=== PATIENT | female | born 1930 | race Caucasian/White ===

== ENCOUNTER 2018-03-10 12:38 | Inpatient (IN) | payer MEDICARE, OTHER ==
[2018-03-10 13:04] LABS: ADD MAN DIFF? NO
[2018-03-10 13:05] LABS: WHITE BLOOD COUNT 12.8 10^3/ul (4.8-10.8)
[2018-03-10 13:05] LABS: BASOPHILS % 0.2 % (0.0-2.0); EOSINOPHILS # 0.2 10^3/ul (0.0-0.5); EOSINOPHILS % 1.2 % (0.0-7.0); HEMATOCRIT 39.5 % (37.0-47.0); HEMOGLOBIN 12.8 g/dl (12.0-16.0); LYMPHOCYTES # 1.2 10^3/ul (0.8-2.9); LYMPHOCYTES % 9.3 % (15.0-51.0); MEAN CORPUSCULAR HEMOGLOBIN 31.7 pg (29.0-33.0); MEAN CORPUSCULAR HGB CONC 32.4 g/dl (32.0-37.0); MEAN CORPUSCULAR VOLUME 97.8 fl (82.0-101.0); MEAN PLATELET VOLUME 10.9 fl (7.4-10.4); MONOCYTE # 0.9 10^3/ul (0.3-0.9); MONOCYTES % 7.4 % (0.0-11.0); NEUTROPHIL # 10.3 10^3/ul (1.6-7.5); PLATELET COUNT 215 10^3/UL (140-415); RED BLOOD COUNT 4.04 10^6/ul (4.20-5.40)
[2018-03-10] MEDS: SOD CHLORIDE 0.9% 500 ML IV (13:07)
[2018-03-10 13:25] LABS: INR 0.93; PROTIME 12.5 Sec (11.9-14.9)
[2018-03-10 13:26] LABS: PARTIAL THROMBOPLASTIN TIME 26.6 Sec (25.0-35.0)
[2018-03-10 13:29] LABS: ANION GAP 16 (8-16); BLOOD UREA NITROGEN 28 mg/dl (7-20); CALCIUM 9.8 mg/dl (8.4-10.2); CARBON DIOXIDE 25 mmol/L (21-31); CHLORIDE 105 mmol/L (97-110); CREATININE 1.33 mg/dl (0.44-1.00); GLUCOSE 111 mg/dl (70-220); POTASSIUM 4.4 mmol/L (3.5-5.1); SODIUM 142 mmol/L (135-144)
[2018-03-10] MEDS ORDERED: ACETAMINOPHEN 325 MG TAB PO (13:30)
[2018-03-10] MEDS ORDERED: ONDANSETRON 4 MG INJ IV ×2 (13:30→17:00)
[2018-03-10] MEDS: ONDANSETRON 4 MG INJ IV ×2 (13:57→20:11)
[2018-03-10] MEDS: morphine 4 MG/ML VIAL IV (13:58)
[2018-03-10] MEDS ORDERED: HYDROCODONE/APAP (5/325) TAB PO (17:00)
[2018-03-10] MEDS: DEXTROSE 5%-0.45% NACL 1,000 ML IV (18:03)
[2018-03-10] MEDS: DICYCLOMINE 20 MG TAB PO (20:11)
[2018-03-10] MEDS: ATORVASTATIN 20 MG TAB PO (20:11)
[2018-03-10] MEDS: ACETAMINOPHEN 500 MG TAB PO (20:11)
[2018-03-11 05:03] LABS: ADD MAN DIFF? NO
[2018-03-11 05:06] LABS: WHITE BLOOD COUNT 6.4 10^3/ul (4.8-10.8)
[2018-03-11 05:06] LABS: BASOPHILS % 0.2 % (0.0-2.0); EOSINOPHILS % 0.2 % (0.0-7.0); HEMATOCRIT 30.8 % (37.0-47.0); HEMOGLOBIN 10.1 g/dl (12.0-16.0); LYMPHOCYTES # 1.1 10^3/ul (0.8-2.9); LYMPHOCYTES % 17.2 % (15.0-51.0); MEAN CORPUSCULAR HEMOGLOBIN 31.9 pg (29.0-33.0); MEAN CORPUSCULAR HGB CONC 32.8 g/dl (32.0-37.0); MEAN CORPUSCULAR VOLUME 97.2 fl (82.0-101.0); MEAN PLATELET VOLUME 10.7 fl (7.4-10.4); MONOCYTE # 0.8 10^3/ul (0.3-0.9); MONOCYTES % 12.7 % (0.0-11.0); NEUTROPHIL # 4.5 10^3/ul (1.6-7.5); NEUTROPHILS % 69.5 % (39.0-77.0); PLATELET COUNT 187 10^3/UL (140-415); RED BLOOD COUNT 3.17 10^6/ul (4.20-5.40); RED CELL DISTRIBUTION WIDTH 13.1 % (11.5-14.5)
[2018-03-11 05:26] LABS: ANION GAP 18 (8-16); BLOOD UREA NITROGEN 23 mg/dl (7-20); CALCIUM 8.6 mg/dl (8.4-10.2); CARBON DIOXIDE 27 mmol/L (21-31); CHLORIDE 103 mmol/L (97-110); CHOL/HDL RATIO 1.9 RATIO; CREATININE 1.24 mg/dl (0.44-1.00); GLUCOSE 127 mg/dl (70-220); HDL CHOLESTEROL 64 mg/dl (33-92); LDL CHOLESTEROL,CALCULATED 46 mg/dl; SODIUM 144 mmol/L (135-144); TRIGLYCERIDES 74 mg/dl (0-149)
[2018-03-11 05:26] LABS: CHOLESTEROL 125 mg/dl (100-200)
[2018-03-11] MEDS: PANTOPRAZOLE (EC) 40 MG TAB PO (05:43)
[2018-03-11] MEDS: ACETAMINOPHEN 500 MG TAB PO ×2 (05:43→23:50)
[2018-03-11] MEDS ORDERED: DICLOFENAC SODIUM 1% GEL 100 GM TUBE TP (09:00)
[2018-03-11] MEDS: ATENOLOL 50 MG TAB PO (09:00)
[2018-03-11] MEDS: DOCUSATE SODIUM 100 MG CAP PO (09:42)
[2018-03-11] MEDS: MELOXICAM 7.5 MG TAB PO (09:42)
[2018-03-11] MEDS: DONEPEZIL 5 MG TAB PO (09:42)
[2018-03-11] MEDS: DICYCLOMINE 20 MG TAB PO ×2 (09:42→20:18)
[2018-03-11] MEDS: GABAPENTIN 100 MG CAP PO (09:42)
[2018-03-11] MEDS: ENOXAPARIN 30 MG/0.3 ML SYG SC (09:43)
[2018-03-11] MEDS: AMLODIPINE 2.5 MG TAB PO (09:43)
[2018-03-11] MEDS: DEXTROSE 5%-0.45% NACL 1,000 ML IV (09:45)
[2018-03-11 19:11] LABS: CREATINE KINASE 339 IU/L (23-200)
[2018-03-11 19:24] LABS: CK INDEX 0.7; CK-MB 2.38 ng/ml (0.0-2.4)
[2018-03-11 19:26] LABS: TROPONIN-I < 0.012 ng/ml (0.00-0.12)
[2018-03-11] MEDS: ATORVASTATIN 20 MG TAB PO (20:18)
[2018-03-12 01:10] LABS: CREATINE KINASE 353 IU/L (23-200)
[2018-03-12 01:24] LABS: CK INDEX 0.6; CK-MB 2.05 ng/ml (0.0-2.4); TROPONIN-I 0.015 ng/ml (0.00-0.12)
[2018-03-12] MEDS: DEXTROSE 5%-0.45% NACL 1,000 ML IV ×2 (04:43→21:38)
[2018-03-12] MEDS: ACETAMINOPHEN 500 MG TAB PO ×2 (04:43→21:44)
[2018-03-12] MEDS: PANTOPRAZOLE (EC) 40 MG TAB PO (05:30)
[2018-03-12 06:21] LABS: ADD MAN DIFF? NO
[2018-03-12 06:29] LABS: BASOPHILS % 0.2 % (0.0-2.0); EOSINOPHILS # 0.1 10^3/ul (0.0-0.5); EOSINOPHILS % 1.3 % (0.0-7.0); HEMATOCRIT 35.4 % (37.0-47.0); HEMOGLOBIN 11.1 g/dl (12.0-16.0); LYMPHOCYTES # 1.4 10^3/ul (0.8-2.9); LYMPHOCYTES % 21.4 % (15.0-51.0); MEAN CORPUSCULAR HEMOGLOBIN 31.1 pg (29.0-33.0); MEAN CORPUSCULAR HGB CONC 31.4 g/dl (32.0-37.0); MEAN CORPUSCULAR VOLUME 99.2 fl (82.0-101.0); MONOCYTE # 0.8 10^3/ul (0.3-0.9); MONOCYTES % 12.1 % (0.0-11.0); NEUTROPHIL # 4.2 10^3/ul (1.6-7.5); NEUTROPHILS % 64.8 % (39.0-77.0); PLATELET COUNT 210 10^3/UL (140-415); RED BLOOD COUNT 3.57 10^6/ul (4.20-5.40); RED CELL DISTRIBUTION WIDTH 13.1 % (11.5-14.5)
[2018-03-12 06:29] LABS: WHITE BLOOD COUNT 6.4 10^3/ul (4.8-10.8)
[2018-03-12 06:34] LABS: ALANINE AMINOTRANSFERASE 30 IU/L (13-69); ALBUMIN 3.4 g/dl (3.3-4.9); ALBUMIN/GLOBULIN RATIO 1.21; ALKALINE PHOSPHATASE 33 IU/L (42-121); ANION GAP 14 (8-16); ASPARTATE AMINO TRANSFERASE 32 IU/L (15-46); BILIRUBIN,INDIRECT 0.1 mg/dl (0-1.1); BILIRUBIN,TOTAL 0.1 mg/dl (0.2-1.3); BLOOD UREA NITROGEN 17 mg/dl (7-20); CALCIUM 8.9 mg/dl (8.4-10.2); CARBON DIOXIDE 29 mmol/L (21-31); CHLORIDE 106 mmol/L (97-110); CREATININE 1.09 mg/dl (0.44-1.00); GLUCOSE 112 mg/dl (70-220); POTASSIUM 3.9 mmol/L (3.5-5.1); SODIUM 145 mmol/L (135-144); TOTAL PROTEIN 6.2 g/dl (6.1-8.1)
[2018-03-12 06:37] LABS: CHOL/HDL RATIO 2.1 RATIO; HDL CHOLESTEROL 66 mg/dl (33-92); LDL CHOLESTEROL,CALCULATED 57 mg/dl; TRIGLYCERIDES 89 mg/dl (0-149)
[2018-03-12 06:37] LABS: CHOLESTEROL 141 mg/dl (100-200)
[2018-03-12 06:49] LABS: INR 0.93; PROTIME 12.5 Sec (11.9-14.9)
[2018-03-12 07:00] LABS: THYROID STIMULATING HORMONE 0.821 MIU/L (0.465-4.680)
[2018-03-12 07:12] LABS: FREE T4 (FREE THYROXINE) 1.12 ng/dl (0.85-1.93)
[2018-03-12] MEDS: DICYCLOMINE 20 MG TAB PO ×2 (09:07→21:38)
[2018-03-12] MEDS: GABAPENTIN 100 MG CAP PO (09:07)
[2018-03-12] MEDS: DOCUSATE SODIUM 100 MG CAP PO (09:07)
[2018-03-12] MEDS: DONEPEZIL 5 MG TAB PO (09:08)
[2018-03-12] MEDS: MELOXICAM 7.5 MG TAB PO (09:08)
[2018-03-12] MEDS: ATENOLOL 50 MG TAB PO (09:10)
[2018-03-12] MEDS: ENOXAPARIN 30 MG/0.3 ML SYG SC (09:12)
[2018-03-12 18:30] LABS: CREATINE KINASE 271 IU/L (23-200)
[2018-03-12 18:43] LABS: CK INDEX 0.5
[2018-03-12 18:49] LABS: TROPONIN-I < 0.012 ng/ml (0.00-0.12)
[2018-03-12] MEDS: ATORVASTATIN 20 MG TAB PO (21:38)
[2018-03-13 05:14] LABS: ADD MAN DIFF? NO
[2018-03-13 05:23] LABS: WHITE BLOOD COUNT 6.4 10^3/ul (4.8-10.8)
[2018-03-13 05:23] LABS: HEMATOCRIT 32.7 % (37.0-47.0); HEMOGLOBIN 10.5 g/dl (12.0-16.0); MEAN CORPUSCULAR HEMOGLOBIN 31.3 pg (29.0-33.0); MEAN CORPUSCULAR HGB CONC 32.1 g/dl (32.0-37.0); MEAN CORPUSCULAR VOLUME 97.3 fl (82.0-101.0); PLATELET COUNT 190 10^3/UL (140-415); RED BLOOD COUNT 3.36 10^6/ul (4.20-5.40); RED CELL DISTRIBUTION WIDTH 13.1 % (11.5-14.5)
[2018-03-13 05:24] LABS: BASOPHILS % 0.2 % (0.0-2.0); EOSINOPHILS # 0.2 10^3/ul (0.0-0.5); EOSINOPHILS % 3.1 % (0.0-7.0); LYMPHOCYTES # 1.5 10^3/ul (0.8-2.9); LYMPHOCYTES % 23.1 % (15.0-51.0); MEAN PLATELET VOLUME 10.8 fl (7.4-10.4); MONOCYTE # 0.7 10^3/ul (0.3-0.9); MONOCYTES % 10.5 % (0.0-11.0); NEUTROPHILS % 62.8 % (39.0-77.0)
[2018-03-13 05:49] LABS: ANION GAP 15 (8-16); BLOOD UREA NITROGEN 15 mg/dl (7-20); CALCIUM 8.6 mg/dl (8.4-10.2); CARBON DIOXIDE 28 mmol/L (21-31); CHLORIDE 107 mmol/L (97-110); CREATININE 0.99 mg/dl (0.44-1.00); GLUCOSE 109 mg/dl (70-220); POTASSIUM 3.7 mmol/L (3.5-5.1); SODIUM 146 mmol/L (135-144)
[2018-03-13] MEDS: PANTOPRAZOLE (EC) 40 MG TAB PO (06:26)
[2018-03-13] MEDS: ATENOLOL 50 MG TAB PO (07:45)
[2018-03-13] MEDS: DOCUSATE SODIUM 100 MG CAP PO (07:45)
[2018-03-13] MEDS: MELOXICAM 7.5 MG TAB PO (07:45)
[2018-03-13] MEDS: DICYCLOMINE 20 MG TAB PO ×2 (07:45→20:53)
[2018-03-13] MEDS: ENOXAPARIN 30 MG/0.3 ML SYG SC (07:45)
[2018-03-13] MEDS: GABAPENTIN 100 MG CAP PO (07:45)
[2018-03-13] MEDS: DONEPEZIL 5 MG TAB PO (07:46)
[2018-03-13] MEDS: morphine 2 MG INJ IV (13:01)
[2018-03-13] MEDS: DEXTROSE 5%-0.45% NACL 1,000 ML IV ×2 (13:50→16:07)
[2018-03-13] MEDS ORDERED: BUPIVACAINE 0.75%/DEXT (SPINAL) 2 ML INJ (15:08)
[2018-03-13] MEDS ORDERED: FENTAnyl 50 MCG/ML VIAL (15:10)
[2018-03-13] MEDS: ACETAMINOPHEN 500 MG TAB PO ×2 (18:35→20:53)
[2018-03-13] MEDS: ATORVASTATIN 20 MG TAB PO (20:53)
[2018-03-14 05:21] LABS: ADD MAN DIFF? NO
[2018-03-14 05:25] LABS: BASOPHILS % 0.1 % (0.0-2.0); EOSINOPHILS # 0.1 10^3/ul (0.0-0.5); EOSINOPHILS % 1.5 % (0.0-7.0); HEMATOCRIT 34.6 % (37.0-47.0); HEMOGLOBIN 11.1 g/dl (12.0-16.0); LYMPHOCYTES # 1.4 10^3/ul (0.8-2.9); LYMPHOCYTES % 19.5 % (15.0-51.0); MEAN CORPUSCULAR HEMOGLOBIN 30.9 pg (29.0-33.0); MEAN CORPUSCULAR HGB CONC 32.1 g/dl (32.0-37.0); MEAN CORPUSCULAR VOLUME 96.4 fl (82.0-101.0); MEAN PLATELET VOLUME 10.9 fl (7.4-10.4); MONOCYTE # 0.7 10^3/ul (0.3-0.9); MONOCYTES % 10.2 % (0.0-11.0); NEUTROPHIL # 4.9 10^3/ul (1.6-7.5); NEUTROPHILS % 68.4 % (39.0-77.0); PLATELET COUNT 224 10^3/UL (140-415); RED BLOOD COUNT 3.59 10^6/ul (4.20-5.40); RED CELL DISTRIBUTION WIDTH 12.7 % (11.5-14.5)
[2018-03-14 05:25] LABS: WHITE BLOOD COUNT 7.2 10^3/ul (4.8-10.8)
[2018-03-14 05:52] LABS: ANION GAP 11 (8-16); BLOOD UREA NITROGEN 12 mg/dl (7-20); CALCIUM 8.5 mg/dl (8.4-10.2); CARBON DIOXIDE 29 mmol/L (21-31); CHLORIDE 110 mmol/L (97-110); CREATININE 0.96 mg/dl (0.44-1.00); GLUCOSE 125 mg/dl (70-220); POTASSIUM 3.8 mmol/L (3.5-5.1); SODIUM 146 mmol/L (135-144)
[2018-03-14] MEDS: PANTOPRAZOLE (EC) 40 MG TAB PO (06:00)
[2018-03-14] MEDS: POLYMYXIN/BACITRACIN 1L IRRIG IRR (07:34)
[2018-03-14] MEDS ORDERED: FENTAnyl 50 MCG/ML VIAL (07:37)
[2018-03-14] MEDS ORDERED: PROPOFOL 20 ML (07:37)
[2018-03-14] MEDS ORDERED: MIDAZOLAM 1 MG/ML 2 ML INJ (07:37)
[2018-03-14] MEDS ORDERED: METOCLOPRAMIDE 10 MG INJ (07:37)
[2018-03-14] MEDS ORDERED: ONDANSETRON 4 MG INJ (07:37)
[2018-03-14] MEDS ORDERED: morphine SULFATE/PF (10 MG/10 ML) INJ (07:37)
[2018-03-14] MEDS ORDERED: CEFAZOLIN 1 GM INJ (07:39)
[2018-03-14] MEDS ORDERED: PHENYLephrine (100 MCG/ML) 5ML SYG (08:04)
[2018-03-14] MEDS ORDERED: METOPROLOL 5 MG INJ (08:21)
[2018-03-14] MEDS ORDERED: LABETALOL HCL 20MG INJ IV (08:30)
[2018-03-14] MEDS ORDERED: ONDANSETRON 4 MG INJ IV (08:30)
[2018-03-14] MEDS ORDERED: EPHEDrine SULFATE 50 MG/5 ML SYG IV (08:30)
[2018-03-14] MEDS ORDERED: hydrALAzine 20 MG INJ IV (08:30)
[2018-03-14] MEDS ORDERED: HYDROmorphONE (0.2 MG/ML) 10ML SYG IV ×2 (08:30)
[2018-03-14] MEDS: DONEPEZIL 5 MG TAB PO ×2 (09:00→16:04)
[2018-03-14] MEDS: ENOXAPARIN 30 MG/0.3 ML SYG SC (09:00)
[2018-03-14] MEDS: DOCUSATE SODIUM 100 MG CAP PO (09:00)
[2018-03-14] MEDS: ATENOLOL 50 MG TAB PO ×2 (09:00→16:04)
[2018-03-14] MEDS: MELOXICAM 7.5 MG TAB PO (09:00)
[2018-03-14] MEDS: GABAPENTIN 100 MG CAP PO (09:00)
[2018-03-14] MEDS: DICYCLOMINE 20 MG TAB PO ×2 (09:00→20:56)
[2018-03-14] MEDS ORDERED: ROPIVACAINE 0.5 % 30 ML VIAL (09:35)
[2018-03-14] MEDS ORDERED: EPHEDrine SULFATE 50 MG/5 ML SYG (09:59)
[2018-03-14] MEDS ORDERED: NACL 0.9% 3 ML SYG IV (10:00)
[2018-03-14] MEDS ORDERED: HYDROCODONE/APAP (5/325) TAB PO (10:00)
[2018-03-14] MEDS ORDERED: morphine 2 MG INJ IV (10:00)
[2018-03-14] MEDS: HYDROmorphONE (0.2 MG/ML) 10ML SYG IV ×2 (10:15→11:06)
[2018-03-14] MEDS: CEFAZOLIN 1 GM/50 ML (PMX) 50 ML IVPB ×2 (10:50→18:31)
[2018-03-14] MEDS: D5W-0.45 NACL + KCL 20 MEQ 1,000 ML IV ×2 (12:05→21:42)
[2018-03-14] MEDS: ONDANSETRON 4 MG INJ IV (12:05)
[2018-03-14] MEDS ORDERED: POLYMYXIN/BACITRACIN 1L IRRIG (13:03)
[2018-03-14] MEDS: CALCIUM CARBONATE 500 MG CHEW TAB PO (13:55)
[2018-03-14] MEDS: ATORVASTATIN 20 MG TAB PO (20:56)
[2018-03-15] MEDS: CALCIUM CARBONATE 500 MG CHEW TAB PO (00:19)
[2018-03-15] MEDS: DIPHENHYDRAMINE 50 MG INJ IV (00:49)
[2018-03-15] MEDS: CEFAZOLIN 1 GM/50 ML (PMX) 50 ML IVPB (02:23)
[2018-03-15] MEDS: D5W-0.45 NACL + KCL 20 MEQ 1,000 ML IV (05:57)
[2018-03-15] MEDS: LORAZEPAM 2 MG INJ IV (06:24)
[2018-03-15] MEDS: PANTOPRAZOLE (EC) 40 MG TAB PO (06:24)
[2018-03-15 07:33] LABS: ADD UMIC YES; UR ASCORBIC ACID NEGATIVE (NEGATIVE); UR BACTERIA FEW /HPF (NONE SEEN); UR BILIRUBIN (Dip) NEGATIVE (NEGATIVE); UR BLOOD (Dip) 2+ mg/dL (NEGATIVE); UR CLARITY CLEAR (CLEAR); UR COLOR YELLOW (YELLOW); UR GLUCOSE (Dip) 1+ mg/dL (NEGATIVE); UR KETONES (Dip) NEGATIVE (NEGATIVE); UR LEUKOCYTE ESTERASE (Dip) NEGATIVE Leu/ul (NEGATIVE); UR NITRITE (Dip) NEGATIVE (NEGATIVE); UR RBC 0 /HPF (0-5); UR SPECIFIC GRAVITY (Dip) 1.008 (1.003-1.030); UR TOTAL PROTEIN (Dip) NEGATIVE (NEGATIVE); UR UROBILINOGEN (Dip) NEGATIVE (NEGATIVE); UR WBC 3 /HPF (0-5)
[2018-03-15] MEDS: GABAPENTIN 100 MG CAP PO (09:04)
[2018-03-15] MEDS: DOCUSATE SODIUM 100 MG CAP PO (09:04)
[2018-03-15] MEDS: ATENOLOL 50 MG TAB PO (09:08)
[2018-03-15] MEDS: MELOXICAM 7.5 MG TAB PO (09:08)
[2018-03-15] MEDS: DICYCLOMINE 20 MG TAB PO ×2 (09:09→20:59)
[2018-03-15] MEDS: DONEPEZIL 5 MG TAB PO (09:09)
[2018-03-15] MEDS: ENOXAPARIN 40 MG/0.4 ML SYG SC (09:16)
[2018-03-15 09:36] LABS: ADD MAN DIFF? NO
[2018-03-15 09:43] LABS: WHITE BLOOD COUNT 9.3 10^3/ul (4.8-10.8)
[2018-03-15 09:43] LABS: BASOPHILS % 0.1 % (0.0-2.0); EOSINOPHILS % 0.1 % (0.0-7.0); HEMATOCRIT 27.5 % (37.0-47.0); HEMOGLOBIN 9.1 g/dl (12.0-16.0); LYMPHOCYTES # 1.4 10^3/ul (0.8-2.9); MEAN CORPUSCULAR HEMOGLOBIN 31.5 pg (29.0-33.0); MEAN CORPUSCULAR HGB CONC 33.1 g/dl (32.0-37.0); MEAN CORPUSCULAR VOLUME 95.2 fl (82.0-101.0); MEAN PLATELET VOLUME 10.1 fl (7.4-10.4); MONOCYTE # 0.9 10^3/ul (0.3-0.9); NEUTROPHIL # 6.9 10^3/ul (1.6-7.5); NEUTROPHILS % 74.4 % (39.0-77.0); PLATELET COUNT 205 10^3/UL (140-415); RED BLOOD COUNT 2.89 10^6/ul (4.20-5.40); RED CELL DISTRIBUTION WIDTH 12.8 % (11.5-14.5)
[2018-03-15 10:07] LABS: ANION GAP 12 (8-16); BLOOD UREA NITROGEN 16 mg/dl (7-20); CALCIUM 8.1 mg/dl (8.4-10.2); CARBON DIOXIDE 29 mmol/L (21-31); CHLORIDE 105 mmol/L (97-110); CREATININE 1.07 mg/dl (0.44-1.00); GLUCOSE 115 mg/dl (70-220); SODIUM 142 mmol/L (135-144)
[2018-03-15] MEDS: ACETAMINOPHEN 500 MG TAB PO ×2 (12:32→21:01)
[2018-03-15] MEDS: ATORVASTATIN 20 MG TAB PO (20:59)
[2018-03-16] MEDS: ACETAMINOPHEN 500 MG TAB PO ×3 (05:25→20:59)
[2018-03-16] MEDS: PANTOPRAZOLE (EC) 40 MG TAB PO (05:25)
[2018-03-16 05:49] LABS: ADD MAN DIFF? NO
[2018-03-16 06:12] LABS: BASOPHILS % 0.1 % (0.0-2.0); EOSINOPHILS # 0.2 10^3/ul (0.0-0.5); EOSINOPHILS % 2.7 % (0.0-7.0); HEMATOCRIT 24.6 % (37.0-47.0); HEMOGLOBIN 7.9 g/dl (12.0-16.0); LYMPHOCYTES # 1.7 10^3/ul (0.8-2.9); LYMPHOCYTES % 20.4 % (15.0-51.0); MEAN CORPUSCULAR HEMOGLOBIN 31.2 pg (29.0-33.0); MEAN CORPUSCULAR HGB CONC 32.1 g/dl (32.0-37.0); MEAN CORPUSCULAR VOLUME 97.2 fl (82.0-101.0); MEAN PLATELET VOLUME 11.2 fl (7.4-10.4); MONOCYTE # 0.8 10^3/ul (0.3-0.9); MONOCYTES % 9.3 % (0.0-11.0); NEUTROPHIL # 5.5 10^3/ul (1.6-7.5); NEUTROPHILS % 67.3 % (39.0-77.0); PLATELET COUNT 188 10^3/UL (140-415); RED BLOOD COUNT 2.53 10^6/ul (4.20-5.40); RED CELL DISTRIBUTION WIDTH 13.2 % (11.5-14.5)
[2018-03-16 06:12] LABS: WHITE BLOOD COUNT 8.1 10^3/ul (4.8-10.8)
[2018-03-16 06:18] LABS: ANION GAP 8 (8-16); BLOOD UREA NITROGEN 21 mg/dl (7-20); CALCIUM 7.8 mg/dl (8.4-10.2); CARBON DIOXIDE 31 mmol/L (21-31); CHLORIDE 111 mmol/L (97-110); CREATININE 1.13 mg/dl (0.44-1.00); GLUCOSE 88 mg/dl (70-220); POTASSIUM 3.7 mmol/L (3.5-5.1); SODIUM 146 mmol/L (135-144)
[2018-03-16] MEDS: MELOXICAM 7.5 MG TAB PO (08:43)
[2018-03-16] MEDS: GABAPENTIN 100 MG CAP PO (08:43)
[2018-03-16] MEDS: DONEPEZIL 5 MG TAB PO (08:43)
[2018-03-16] MEDS: DICYCLOMINE 20 MG TAB PO ×2 (08:43→20:58)
[2018-03-16] MEDS: DOCUSATE SODIUM 100 MG CAP PO (08:43)
[2018-03-16] MEDS: ATENOLOL 50 MG TAB PO (08:45)
[2018-03-16] MEDS: ENOXAPARIN 40 MG/0.4 ML SYG SC (08:51)
[2018-03-16] MEDS: POTASSIUM CHLORIDE IV (11:05)
[2018-03-16] MEDS: DEXTROSE 5% IV (11:05)
[2018-03-16] MEDS: SOD CHLORIDE 0.9% 250 ML IV* (14:44)
[2018-03-16] MEDS ORDERED: traMADol 50 MG TAB PO (15:00)
[2018-03-16 20:53] LABS: IMMEDIATE SPIN CROSSMATCH 1 1
[2018-03-16] MEDS: ATORVASTATIN 20 MG TAB PO (20:58)
[2018-03-17 05:04] LABS: ADD MAN DIFF? NO
[2018-03-17 05:07] LABS: WHITE BLOOD COUNT 7.4 10^3/ul (4.8-10.8)
[2018-03-17 05:07] LABS: BASOPHILS % 0.1 % (0.0-2.0); EOSINOPHILS # 0.3 10^3/ul (0.0-0.5); EOSINOPHILS % 3.4 % (0.0-7.0); HEMATOCRIT 28.6 % (37.0-47.0); HEMOGLOBIN 9.6 g/dl (12.0-16.0); LYMPHOCYTES # 1.4 10^3/ul (0.8-2.9); MEAN CORPUSCULAR HEMOGLOBIN 31.5 pg (29.0-33.0); MEAN CORPUSCULAR HGB CONC 33.6 g/dl (32.0-37.0); MEAN CORPUSCULAR VOLUME 93.8 fl (82.0-101.0); MEAN PLATELET VOLUME 10.4 fl (7.4-10.4); MONOCYTE # 0.6 10^3/ul (0.3-0.9); MONOCYTES % 8.7 % (0.0-11.0); NEUTROPHILS % 67.8 % (39.0-77.0); PLATELET COUNT 217 10^3/UL (140-415); RED BLOOD COUNT 3.05 10^6/ul (4.20-5.40); RED CELL DISTRIBUTION WIDTH 14.6 % (11.5-14.5)
[2018-03-17 05:40] LABS: ANION GAP 10 (8-16); BLOOD UREA NITROGEN 17 mg/dl (7-20); CALCIUM 7.9 mg/dl (8.4-10.2); CARBON DIOXIDE 30 mmol/L (21-31); CHLORIDE 107 mmol/L (97-110); CREATININE 1.02 mg/dl (0.44-1.00); GLUCOSE 105 mg/dl (70-220); POTASSIUM 3.6 mmol/L (3.5-5.1); SODIUM 143 mmol/L (135-144)
[2018-03-17] MEDS: PANTOPRAZOLE (EC) 40 MG TAB PO (07:10)
[2018-03-17] MEDS: ACETAMINOPHEN 500 MG TAB PO ×3 (07:10→21:31)
[2018-03-17] MEDS: DICYCLOMINE 20 MG TAB PO ×2 (09:01→21:27)
[2018-03-17] MEDS: DOCUSATE SODIUM 100 MG CAP PO (09:01)
[2018-03-17] MEDS: GABAPENTIN 100 MG CAP PO (09:01)
[2018-03-17] MEDS: ATENOLOL 25 MG TAB PO (09:02)
[2018-03-17] MEDS: DONEPEZIL 5 MG TAB PO (09:02)
[2018-03-17] MEDS: MELOXICAM 7.5 MG TAB PO (09:02)
[2018-03-17] MEDS: ENOXAPARIN 40 MG/0.4 ML SYG SC (09:05)
[2018-03-17] MEDS: ATORVASTATIN 20 MG TAB PO (21:27)
[2018-03-18] MEDS: ACETAMINOPHEN 500 MG TAB PO ×3 (06:33→21:29)
[2018-03-18] MEDS: PANTOPRAZOLE (EC) 40 MG TAB PO (06:33)
[2018-03-18] MEDS: GABAPENTIN 100 MG CAP PO (10:22)
[2018-03-18] MEDS: DICYCLOMINE 20 MG TAB PO ×2 (10:22→21:29)
[2018-03-18] MEDS: DOCUSATE SODIUM 100 MG CAP PO (10:23)
[2018-03-18] MEDS: ATENOLOL 25 MG TAB PO (10:23)
[2018-03-18] MEDS: MELOXICAM 7.5 MG TAB PO (10:23)
[2018-03-18] MEDS: DONEPEZIL 5 MG TAB PO (10:23)
[2018-03-18] MEDS: ENOXAPARIN 40 MG/0.4 ML SYG SC (10:25)
[2018-03-18] MEDS: NYSTATIN 30 GM POWDER BTL TOP ×2 (14:30→21:30)
[2018-03-18] MEDS: ATORVASTATIN 20 MG TAB PO (21:29)
[2018-03-19 05:11] LABS: ADD MAN DIFF? NO
[2018-03-19 05:17] LABS: WHITE BLOOD COUNT 6.5 10^3/ul (4.8-10.8)
[2018-03-19 05:17] LABS: BASOPHILS % 0.3 % (0.0-2.0); EOSINOPHILS # 0.3 10^3/ul (0.0-0.5); EOSINOPHILS % 4.8 % (0.0-7.0); HEMATOCRIT 31.4 % (37.0-47.0); HEMOGLOBIN 10.1 g/dl (12.0-16.0); LYMPHOCYTES # 1.5 10^3/ul (0.8-2.9); LYMPHOCYTES % 23.4 % (15.0-51.0); MEAN CORPUSCULAR HEMOGLOBIN 30.6 pg (29.0-33.0); MEAN CORPUSCULAR HGB CONC 32.2 g/dl (32.0-37.0); MEAN CORPUSCULAR VOLUME 95.2 fl (82.0-101.0); MEAN PLATELET VOLUME 9.9 fl (7.4-10.4); MONOCYTE # 0.7 10^3/ul (0.3-0.9); MONOCYTES % 10.9 % (0.0-11.0); NEUTROPHIL # 3.9 10^3/ul (1.6-7.5); NEUTROPHILS % 60.3 % (39.0-77.0); PLATELET COUNT 321 10^3/UL (140-415); RED CELL DISTRIBUTION WIDTH 14.2 % (11.5-14.5)
[2018-03-19] MEDS: PANTOPRAZOLE (EC) 40 MG TAB PO (05:22)
[2018-03-19 05:38] LABS: ANION GAP 12 (8-16); BLOOD UREA NITROGEN 16 mg/dl (7-20); CALCIUM 8.6 mg/dl (8.4-10.2); CARBON DIOXIDE 29 mmol/L (21-31); CHLORIDE 106 mmol/L (97-110); CREATININE 0.96 mg/dl (0.44-1.00); GLUCOSE 124 mg/dl (70-220); POTASSIUM 3.6 mmol/L (3.5-5.1); SODIUM 143 mmol/L (135-144)
[2018-03-19] MEDS: DICYCLOMINE 20 MG TAB PO ×2 (09:00→21:20)
[2018-03-19] MEDS: DONEPEZIL 5 MG TAB PO (09:19)
[2018-03-19] MEDS: ENOXAPARIN 40 MG/0.4 ML SYG SC (09:19)
[2018-03-19] MEDS: MELOXICAM 7.5 MG TAB PO (09:19)
[2018-03-19] MEDS: DOCUSATE SODIUM 100 MG CAP PO (09:19)
[2018-03-19] MEDS: GABAPENTIN 100 MG CAP PO (09:19)
[2018-03-19] MEDS: ATENOLOL 25 MG TAB PO (09:20)
[2018-03-19] MEDS: NYSTATIN 30 GM POWDER BTL TOP ×2 (09:21→21:21)
[2018-03-19] MEDS: ATORVASTATIN 20 MG TAB PO (21:20)
[2018-03-20 05:07] LABS: ADD MAN DIFF? NO
[2018-03-20 05:13] LABS: WHITE BLOOD COUNT 7.1 10^3/ul (4.8-10.8)
[2018-03-20 05:13] LABS: BASOPHILS % 0.1 % (0.0-2.0); EOSINOPHILS # 0.3 10^3/ul (0.0-0.5); EOSINOPHILS % 4.2 % (0.0-7.0); HEMATOCRIT 32.1 % (37.0-47.0); HEMOGLOBIN 10.4 g/dl (12.0-16.0); LYMPHOCYTES # 1.9 10^3/ul (0.8-2.9); LYMPHOCYTES % 26.5 % (15.0-51.0); MEAN CORPUSCULAR HEMOGLOBIN 31.1 pg (29.0-33.0); MEAN CORPUSCULAR HGB CONC 32.4 g/dl (32.0-37.0); MEAN CORPUSCULAR VOLUME 96.1 fl (82.0-101.0); MEAN PLATELET VOLUME 9.8 fl (7.4-10.4); MONOCYTE # 0.7 10^3/ul (0.3-0.9); MONOCYTES % 10.4 % (0.0-11.0); NEUTROPHIL # 4.2 10^3/ul (1.6-7.5); NEUTROPHILS % 58.4 % (39.0-77.0); PLATELET COUNT 342 10^3/UL (140-415); RED BLOOD COUNT 3.34 10^6/ul (4.20-5.40); RED CELL DISTRIBUTION WIDTH 14.5 % (11.5-14.5)
[2018-03-20 05:28] LABS: ANION GAP 10 (8-16); BLOOD UREA NITROGEN 17 mg/dl (7-20); CALCIUM 8.5 mg/dl (8.4-10.2); CARBON DIOXIDE 31 mmol/L (21-31); CHLORIDE 107 mmol/L (97-110); CREATININE 0.99 mg/dl (0.44-1.00); GLUCOSE 103 mg/dl (70-220); POTASSIUM 3.8 mmol/L (3.5-5.1); SODIUM 144 mmol/L (135-144)
[2018-03-20] MEDS: PANTOPRAZOLE (EC) 40 MG TAB PO (06:28)
[2018-03-20] MEDS: GABAPENTIN 100 MG CAP PO (08:43)
[2018-03-20] MEDS: DICYCLOMINE 20 MG TAB PO ×2 (08:43→21:27)
[2018-03-20] MEDS: DONEPEZIL 5 MG TAB PO (08:44)
[2018-03-20] MEDS: ATENOLOL 25 MG TAB PO (08:44)
[2018-03-20] MEDS: DOCUSATE SODIUM 100 MG CAP PO (08:44)
[2018-03-20] MEDS: NYSTATIN 30 GM POWDER BTL TOP ×2 (08:45→21:27)
[2018-03-20] MEDS: ENOXAPARIN 40 MG/0.4 ML SYG SC (08:48)
[2018-03-20] MEDS: MELOXICAM 7.5 MG TAB PO (09:00)
[2018-03-20] MEDS: ACETAMINOPHEN 500 MG TAB PO ×2 (14:56→21:27)
[2018-03-20] MEDS: ATORVASTATIN 20 MG TAB PO (21:27)
[2018-03-20] MEDS: LORAZEPAM 0.5 MG TAB PO (21:35)
[2018-03-21] MEDS: PANTOPRAZOLE (EC) 40 MG TAB PO (05:11)
[2018-03-21] MEDS ORDERED: VITAMIN A & D 5 GM OINT PACKET TOP (05:14)
[2018-03-21] MEDS: DOCUSATE SODIUM 100 MG CAP PO (08:32)
[2018-03-21] MEDS: ATENOLOL 25 MG TAB PO (08:33)
[2018-03-21] MEDS: MELOXICAM 7.5 MG TAB PO (08:33)
[2018-03-21] MEDS: DONEPEZIL 5 MG TAB PO (08:33)
[2018-03-21] MEDS: DICYCLOMINE 20 MG TAB PO ×2 (08:33→20:39)
[2018-03-21] MEDS: GABAPENTIN 100 MG CAP PO (08:33)
[2018-03-21] MEDS: ENOXAPARIN 40 MG/0.4 ML SYG SC (08:37)
[2018-03-21] MEDS: NYSTATIN 30 GM POWDER BTL TOP ×2 (08:37→20:40)
[2018-03-21] MEDS: LORAZEPAM 0.5 MG TAB PO (20:39)
[2018-03-21] MEDS: ATORVASTATIN 20 MG TAB PO (20:39)
[2018-03-21] MEDS: ACETAMINOPHEN 500 MG TAB PO (20:39)
[2018-03-22] MEDS: PANTOPRAZOLE (EC) 40 MG TAB PO (05:37)
[2018-03-22] MEDS: ACETAMINOPHEN 500 MG TAB PO (05:37)
[2018-03-22] MEDS: DOCUSATE SODIUM 100 MG CAP PO (08:57)
[2018-03-22] MEDS: ATENOLOL 25 MG TAB PO (08:57)
[2018-03-22] MEDS: MELOXICAM 7.5 MG TAB PO (08:57)
[2018-03-22] MEDS: NYSTATIN 30 GM POWDER BTL TOP (08:58)
[2018-03-22] MEDS: DICYCLOMINE 20 MG TAB PO (08:58)
[2018-03-22] MEDS: DONEPEZIL 5 MG TAB PO (08:58)
[2018-03-22] MEDS: GABAPENTIN 100 MG CAP PO (08:58)
[2018-03-22] MEDS: ENOXAPARIN 40 MG/0.4 ML SYG SC (09:05)
[2018-03-23] MEDS ORDERED: PANTOPRAZOLE (EC) 40 MG TAB PO (06:00)
== END 2018-03-22 16:00 | DRG 481 ==
LOC: MS1 03-15 05:41 → E/R 12:38 → MS1 13:32
PROVIDERS: Orthopaedic Surgery
PROC: 0QS806Z Reposition Right Femoral Shaft with Intramedullary Internal Fixation Device, Open Approach (ICD-10-PCS; principal; 2018-03-13 15:13)
PROC: 30233N1 Transfusion of Nonautologous Red Blood Cells into Peripheral Vein, Percutaneous Approach (ICD-10-PCS; 2018-03-13 15:13)
DX: S72.331A Displaced oblique fracture of shaft of right femur, initial encounter for closed fracture (principal); N17.9 Acute kidney failure, unspecified; D64.9 Anemia, unspecified; E78.5 Hyperlipidemia, unspecified; F03.90 Unspecified dementia, unspecified severity, without behavioral disturbance, psychotic disturbance, mood disturbance, and anxiety; I95.9 Hypotension, unspecified; I12.9 Hypertensive chronic kidney disease with stage 1 through stage 4 chronic kidney disease, or unspecified chronic kidney disease; M19.90 Unspecified osteoarthritis, unspecified site; N18.2 Chronic kidney disease, stage 2 (mild); R94.31 Abnormal electrocardiogram [ECG] [EKG]; W18.09XA Striking against other object with subsequent fall, initial encounter; Z96.642 Presence of left artificial hip joint
CPT/HCPCS: 36415; 36430; 71045; 72170; 73510; 73550; 80048; 80053; 80061; 81001; 82550; 82553; 84439; 84443; 84484; 85025; 85610; 85730; 86850; 86900; 86901; 86920; 87086; 93005; 93306; 96374; 96375; 97110; 97116; 97162; 97530; 99285-25

== ENCOUNTER 2018-03-22 16:11 | Inpatient (IN) | payer MEDICARE, OTHER ==
[2018-03-22] MEDS ORDERED: MAGNESIUM HYDROXIDE 30ML CUP PO (17:30)
[2018-03-22] MEDS ORDERED: LACTULOSE 30ML CUP PO (17:30)
[2018-03-22] MEDS ORDERED: ACETAMINOPHEN 325 MG TAB PO (17:30)
[2018-03-22] MEDS ORDERED: BISACODYL 10 MG SUPP PR (17:30)
[2018-03-22] MEDS ORDERED: DIPHENHYDRAMINE 50 MG INJ IV (18:00)
[2018-03-22] MEDS ORDERED: LORAZEPAM 2 MG INJ IV (18:00)
[2018-03-22] MEDS ORDERED: ACETAMINOPHEN 500 MG TAB PO (18:00)
[2018-03-22] MEDS ORDERED: HYDROCODONE/APAP (5/325) TAB PO (18:00)
[2018-03-22] MEDS ORDERED: ONDANSETRON 4 MG INJ IV (18:30)
[2018-03-22] MEDS ORDERED: NACL 0.9% 3 ML SYG IV (18:30)
[2018-03-22] MEDS ORDERED: morphine 2 MG INJ IV ×2 (18:30)
[2018-03-22] MEDS ORDERED: traMADol 50 MG TAB PO (18:30)
[2018-03-22] MEDS: DOCUSATE SODIUM 100 MG CAP PO (21:35)
[2018-03-22] MEDS: SENNA TAB PO (21:35)
[2018-03-22] MEDS: ATORVASTATIN 20 MG TAB PO (21:35)
[2018-03-22] MEDS: LORAZEPAM 0.5 MG TAB PO (21:35)
[2018-03-22] MEDS: NYSTATIN 30 GM POWDER BTL TOP (21:37)
[2018-03-22] MEDS: DICYCLOMINE 20 MG TAB PO (21:37)
[2018-03-23 03:46] LABS: ADD UMIC YES; UR AMORPHOUS CRYSTAL FEW /HPF (NONE SEEN); UR ASCORBIC ACID NEGATIVE (NEGATIVE); UR BACTERIA FEW /HPF (NONE SEEN); UR BILIRUBIN (Dip) NEGATIVE (NEGATIVE); UR BLOOD (Dip) NEGATIVE (NEGATIVE); UR CLARITY SLIGHTLY CLOUDY (CLEAR); UR COLOR YELLOW (YELLOW); UR GLUCOSE (Dip) NEGATIVE (NEGATIVE); UR KETONES (Dip) NEGATIVE (NEGATIVE); UR LEUKOCYTE ESTERASE (Dip) 1+ Leu/ul (NEGATIVE); UR MUCUS FEW /HPF (NONE SEEN); UR NITRITE (Dip) POSITIVE (NEGATIVE); UR RBC 2 /HPF (0-5); UR SPECIFIC GRAVITY (Dip) 1.011 (1.003-1.030); UR TOTAL PROTEIN (Dip) NEGATIVE (NEGATIVE); UR UROBILINOGEN (Dip) NEGATIVE (NEGATIVE); UR WBC 16 /HPF (0-5)
[2018-03-23] MEDS: PANTOPRAZOLE (EC) 40 MG TAB PO (06:28)
[2018-03-23 06:34] LABS: ADD MAN DIFF? NO
[2018-03-23 06:43] LABS: BASOPHILS % 0.1 % (0.0-2.0); EOSINOPHILS # 0.3 10^3/ul (0.0-0.5); EOSINOPHILS % 4.4 % (0.0-7.0); HEMATOCRIT 29.9 % (37.0-47.0); HEMOGLOBIN 9.9 g/dl (12.0-16.0); LYMPHOCYTES # 1.7 10^3/ul (0.8-2.9); LYMPHOCYTES % 24.5 % (15.0-51.0); MEAN CORPUSCULAR HEMOGLOBIN 32.5 pg (29.0-33.0); MEAN CORPUSCULAR HGB CONC 33.1 g/dl (32.0-37.0); MEAN PLATELET VOLUME 9.5 fl (7.4-10.4); MONOCYTE # 0.8 10^3/ul (0.3-0.9); NEUTROPHIL # 4.2 10^3/ul (1.6-7.5); NEUTROPHILS % 59.6 % (39.0-77.0); PLATELET COUNT 382 10^3/UL (140-415); RED BLOOD COUNT 3.05 10^6/ul (4.20-5.40); RED CELL DISTRIBUTION WIDTH 15.4 % (11.5-14.5)
[2018-03-23 06:43] LABS: WHITE BLOOD COUNT 7.1 10^3/ul (4.8-10.8)
[2018-03-23] MEDS: HYDROCODONE/APAP (5/325) TAB PO (07:27)
[2018-03-23 07:29] LABS: ALANINE AMINOTRANSFERASE 38 IU/L (13-69); ALBUMIN/GLOBULIN RATIO 1.07; ALKALINE PHOSPHATASE 63 IU/L (42-121); ANION GAP 15 (8-16); ASPARTATE AMINO TRANSFERASE 28 IU/L (15-46); BILIRUBIN,INDIRECT 0.3 mg/dl (0-1.1); BILIRUBIN,TOTAL 0.3 mg/dl (0.2-1.3); BLOOD UREA NITROGEN 25 mg/dl (7-20); CALCIUM 8.3 mg/dl (8.4-10.2); CARBON DIOXIDE 25 mmol/L (21-31); CHLORIDE 107 mmol/L (97-110); CREATININE 1.06 mg/dl (0.44-1.00); GLUCOSE 100 mg/dl (70-220); POTASSIUM 3.8 mmol/L (3.5-5.1); SODIUM 143 mmol/L (135-144); TOTAL PROTEIN 5.8 g/dl (6.1-8.1)
[2018-03-23] MEDS: MELOXICAM 7.5 MG TAB PO (08:24)
[2018-03-23] MEDS: DOCUSATE SODIUM 100 MG CAP PO ×2 (08:24→22:11)
[2018-03-23] MEDS: ATENOLOL 25 MG TAB PO (08:25)
[2018-03-23] MEDS: DONEPEZIL 5 MG TAB PO (08:25)
[2018-03-23] MEDS: GABAPENTIN 100 MG CAP PO (08:25)
[2018-03-23] MEDS: HYDROmorphONE 0.5 MG/0.5 ML SYG IM (08:26)
[2018-03-23] MEDS: DICYCLOMINE 20 MG TAB PO ×2 (08:31→22:11)
[2018-03-23] MEDS: ENOXAPARIN 40 MG/0.4 ML SYG SC (08:53)
[2018-03-23] MEDS: NYSTATIN 30 GM POWDER BTL TOP ×2 (08:53→22:11)
[2018-03-23] MEDS ORDERED: DOCUSATE SODIUM 100 MG CAP PO (09:00)
[2018-03-23] MEDS ORDERED: AMLODIPINE 2.5 MG TAB PO (09:00)
[2018-03-23] MEDS: SENNA TAB PO (22:00)
[2018-03-23] MEDS: ATORVASTATIN 20 MG TAB PO (22:11)
[2018-03-23] MEDS: LORAZEPAM 0.5 MG TAB PO (22:16)
[2018-03-24] MEDS: PANTOPRAZOLE (EC) 40 MG TAB PO (06:35)
[2018-03-24] MEDS: HYDROCODONE/APAP (5/325) TAB PO (06:50)
[2018-03-24] MEDS: DOCUSATE SODIUM 100 MG CAP PO ×2 (08:26→22:06)
[2018-03-24] MEDS: GABAPENTIN 100 MG CAP PO (08:26)
[2018-03-24] MEDS: DICYCLOMINE 20 MG TAB PO ×2 (08:26→22:05)
[2018-03-24] MEDS: NYSTATIN 30 GM POWDER BTL TOP ×2 (08:27→22:06)
[2018-03-24] MEDS: ATENOLOL 25 MG TAB PO (08:27)
[2018-03-24] MEDS: ENOXAPARIN 40 MG/0.4 ML SYG SC (08:31)
[2018-03-24] MEDS: DONEPEZIL 5 MG TAB PO (09:00)
[2018-03-24] MEDS: MELOXICAM 7.5 MG TAB PO (09:00)
[2018-03-24] MEDS: ATORVASTATIN 20 MG TAB PO (22:05)
[2018-03-24] MEDS: SENNA TAB PO (22:06)
[2018-03-25] MEDS: PANTOPRAZOLE (EC) 40 MG TAB PO (06:53)
[2018-03-25] MEDS: ATENOLOL 25 MG TAB PO (08:30)
[2018-03-25] MEDS: GABAPENTIN 100 MG CAP PO (08:30)
[2018-03-25] MEDS: MELOXICAM 7.5 MG TAB PO (08:30)
[2018-03-25] MEDS: DICYCLOMINE 20 MG TAB PO ×2 (08:30→20:17)
[2018-03-25] MEDS: DONEPEZIL 5 MG TAB PO (08:30)
[2018-03-25] MEDS: ENOXAPARIN 40 MG/0.4 ML SYG SC (08:33)
[2018-03-25] MEDS: CALCIUM CARBONATE 500 MG CHEW TAB PO (08:36)
[2018-03-25] MEDS: DOCUSATE SODIUM 100 MG CAP PO (09:00)
[2018-03-25] MEDS: NYSTATIN 30 GM POWDER BTL TOP ×2 (10:17→20:17)
[2018-03-25] MEDS ORDERED: SENNA TAB PO (11:30)
[2018-03-25] MEDS ORDERED: DOCUSATE SODIUM 100 MG CAP PO (11:30)
[2018-03-25] MEDS: ATORVASTATIN 20 MG TAB PO (20:17)
[2018-03-26] MEDS: PANTOPRAZOLE (EC) 40 MG TAB PO (06:16)
[2018-03-26 06:43] LABS: ADD MAN DIFF? NO
[2018-03-26 06:46] LABS: WHITE BLOOD COUNT 9.7 10^3/ul (4.8-10.8)
[2018-03-26 06:46] LABS: BASOPHILS % 0.2 % (0.0-2.0); EOSINOPHILS # 0.2 10^3/ul (0.0-0.5); EOSINOPHILS % 1.8 % (0.0-7.0); HEMOGLOBIN 11.2 g/dl (12.0-16.0); LYMPHOCYTES # 1.2 10^3/ul (0.8-2.9); LYMPHOCYTES % 12.2 % (15.0-51.0); MEAN CORPUSCULAR HEMOGLOBIN 31.7 pg (29.0-33.0); MEAN CORPUSCULAR VOLUME 99.2 fl (82.0-101.0); MEAN PLATELET VOLUME 9.4 fl (7.4-10.4); MONOCYTE # 0.8 10^3/ul (0.3-0.9); MONOCYTES % 7.8 % (0.0-11.0); NEUTROPHIL # 7.5 10^3/ul (1.6-7.5); NEUTROPHILS % 77.6 % (39.0-77.0); PLATELET COUNT 439 10^3/UL (140-415); RED BLOOD COUNT 3.53 10^6/ul (4.20-5.40); RED CELL DISTRIBUTION WIDTH 15.7 % (11.5-14.5)
[2018-03-26 07:26] LABS: ALANINE AMINOTRANSFERASE 38 IU/L (13-69); ALBUMIN 3.5 g/dl (3.3-4.9); ALBUMIN/GLOBULIN RATIO 1.06; ALKALINE PHOSPHATASE 87 IU/L (42-121); ANION GAP 13 (8-16); ASPARTATE AMINO TRANSFERASE 27 IU/L (15-46); BILIRUBIN,INDIRECT 0.5 mg/dl (0-1.1); BILIRUBIN,TOTAL 0.5 mg/dl (0.2-1.3); BLOOD UREA NITROGEN 22 mg/dl (7-20); CALCIUM 9.1 mg/dl (8.4-10.2); CARBON DIOXIDE 28 mmol/L (21-31); CHLORIDE 104 mmol/L (97-110); CREATININE 1.05 mg/dl (0.44-1.00); GLUCOSE 112 mg/dl (70-220); POTASSIUM 4.3 mmol/L (3.5-5.1); SODIUM 141 mmol/L (135-144); TOTAL PROTEIN 6.8 g/dl (6.1-8.1)
[2018-03-26 07:30] LABS: INR 1.01; PROTIME 13.4 Sec (11.9-14.9)
[2018-03-26 07:31] LABS: PARTIAL THROMBOPLASTIN TIME 29.7 Sec (25.0-35.0)
[2018-03-26] MEDS: HYDROCODONE/APAP (5/325) TAB PO (08:38)
[2018-03-26] MEDS: HYDROmorphONE 2 MG/ML SYG IM (08:40)
[2018-03-26] MEDS: MELOXICAM 7.5 MG TAB PO (08:58)
[2018-03-26] MEDS: DONEPEZIL 5 MG TAB PO (08:59)
[2018-03-26] MEDS: GABAPENTIN 100 MG CAP PO (08:59)
[2018-03-26] MEDS: NYSTATIN 30 GM POWDER BTL TOP ×2 (09:00→21:00)
[2018-03-26] MEDS: ONDANSETRON (ODT) 4 MG TAB ODT ×2 (09:00→11:00)
[2018-03-26] MEDS: ENOXAPARIN 40 MG/0.4 ML SYG SC (09:03)
[2018-03-26] MEDS: ATENOLOL 25 MG TAB PO (09:10)
[2018-03-26] MEDS: DICYCLOMINE 20 MG TAB PO (09:14)
[2018-03-26] MEDS ORDERED: HYDROCODONE/APAP (5/325) TAB PO (13:50)
[2018-03-26] MEDS ORDERED: DEXTROSE 5%-0.45% NACL 1,000 ML IV (14:00)
[2018-03-26] MEDS: SOD CHLORIDE 0.9% 1,000 ML IV (15:52)
[2018-03-26] MEDS: ATORVASTATIN 20 MG TAB PO (21:00)
[2018-03-27] MEDS: SOD CHLORIDE 0.9% 1,000 ML IV ×2 (01:25→11:21)
[2018-03-27] MEDS: PANTOPRAZOLE (EC) 40 MG TAB PO (06:11)
[2018-03-27 08:43] LABS: ANION GAP 15 (8-16); BLOOD UREA NITROGEN 28 mg/dl (7-20); CALCIUM 8.1 mg/dl (8.4-10.2); CARBON DIOXIDE 23 mmol/L (21-31); CHLORIDE 106 mmol/L (97-110); CREATININE 1.31 mg/dl (0.44-1.00); GLUCOSE 94 mg/dl (70-220); POTASSIUM 4.4 mmol/L (3.5-5.1); SODIUM 140 mmol/L (135-144)
[2018-03-27] MEDS: ATENOLOL 25 MG TAB PO (09:03)
[2018-03-27] MEDS: MELOXICAM 7.5 MG TAB PO (09:03)
[2018-03-27] MEDS: NYSTATIN 30 GM POWDER BTL TOP (09:04)
[2018-03-27] MEDS: GABAPENTIN 100 MG CAP PO (11:59)
[2018-03-27] MEDS: ENOXAPARIN 40 MG/0.4 ML SYG SC (11:59)
[2018-03-27] MEDS: DONEPEZIL 5 MG TAB PO (11:59)
[2018-03-27] MEDS: LEVOFLOXACIN 500 MG TAB PO (15:56)
[2018-03-28] MEDS ORDERED: LEVOFLOXACIN 250 MG TAB PO (06:00)
== END 2018-03-27 16:30 | DRG 560 ==
LOC: VRC 16:11
PROC: F07Z5ZZ Bed Mobility Treatment (ICD-10-PCS; principal; 2018-03-22)
PROC: F08Z2ZZ Grooming/Personal Hygiene Treatment (ICD-10-PCS; 2018-03-22)
DX: S72.401D Unspecified fracture of lower end of right femur, subsequent encounter for closed fracture with routine healing (principal); N17.9 Acute kidney failure, unspecified; X58.XXXD Exposure to other specified factors, subsequent encounter; R52 Pain, unspecified; E78.5 Hyperlipidemia, unspecified; I12.9 Hypertensive chronic kidney disease with stage 1 through stage 4 chronic kidney disease, or unspecified chronic kidney disease; M19.90 Unspecified osteoarthritis, unspecified site; Z96.653 Presence of artificial knee joint, bilateral; D64.9 Anemia, unspecified; F03.90 Unspecified dementia, unspecified severity, without behavioral disturbance, psychotic disturbance, mood disturbance, and anxiety; N28.9 Disorder of kidney and ureter, unspecified; R79.89 Other specified abnormal findings of blood chemistry; N18.2 Chronic kidney disease, stage 2 (mild)
CPT/HCPCS: 80048; 80053; 81001; 85025; 85610; 85730; 87086; 97110; 97116; 97163; 97166; 97530; 97535

== ENCOUNTER 2018-03-28 18:58 | Inpatient (IN) | payer MEDICARE, OTHER ==
[2018-03-28] MEDS: SODIUM CHLORIDE 0.9% 1L BAG IV* (19:45)
[2018-03-28] MEDS: CEFEPIME 2GM/50 ML (PMX) 50 ML IVPB (19:45)
[2018-03-28 20:56] LABS: WHITE BLOOD COUNT 11.6 10^3/ul (4.8-10.8)
[2018-03-28 20:56] LABS: ABNORMAL IP MESSAGE 1; HEMOGLOBIN 9.1 g/dl (12.0-16.0); MEAN CORPUSCULAR HEMOGLOBIN 31.5 pg (29.0-33.0); MEAN CORPUSCULAR HGB CONC 31.4 g/dl (32.0-37.0); MEAN CORPUSCULAR VOLUME 100.3 fl (82.0-101.0); MEAN PLATELET VOLUME 9.8 fl (7.4-10.4); PLATELET COUNT 225 10^3/UL (140-415); RED BLOOD COUNT 2.89 10^6/ul (4.20-5.40); RED CELL DISTRIBUTION WIDTH 15.9 % (11.5-14.5)
[2018-03-28 20:59] LABS: ADD MAN DIFF? YES; POSITIVE DIFF @See below
[2018-03-28 21:12] LABS: INR 1.05; PROTIME 13.8 Sec (11.9-14.9); PT RATIO 1.1
[2018-03-28 21:12] LABS: LACTIC ACID 0.8 mmol/L (0.5-2.0)
[2018-03-28 21:13] LABS: PARTIAL THROMBOPLASTIN TIME 36.6 Sec (25.0-35.0)
[2018-03-28 21:14] LABS: ALANINE AMINOTRANSFERASE 36 IU/L (13-69); ALBUMIN 2.7 g/dl (3.3-4.9); ALBUMIN/GLOBULIN RATIO 0.96; ALKALINE PHOSPHATASE 117 IU/L (42-121); ANION GAP 11 (8-16); ASPARTATE AMINO TRANSFERASE 29 IU/L (15-46); BILIRUBIN,INDIRECT 0.2 mg/dl (0-1.1); BILIRUBIN,TOTAL 0.2 mg/dl (0.2-1.3); BLOOD UREA NITROGEN 26 mg/dl (7-20); CALCIUM 7.1 mg/dl (8.4-10.2); CARBON DIOXIDE 20 mmol/L (21-31); CHLORIDE 113 mmol/L (97-110); CREATININE 1.26 mg/dl (0.44-1.00); GLUCOSE 108 mg/dl (70-220); POTASSIUM 4.1 mmol/L (3.5-5.1); SODIUM 140 mmol/L (135-144); TOTAL PROTEIN 5.5 g/dl (6.1-8.1)
[2018-03-28 21:50] LABS: ADD UMIC YES; UR ASCORBIC ACID NEGATIVE (NEGATIVE); UR BACTERIA MODERATE /HPF (NONE SEEN); UR BILIRUBIN (Dip) NEGATIVE (NEGATIVE); UR BLOOD (Dip) 2+ mg/dL (NEGATIVE); UR CLARITY SLIGHTLY CLOUDY (CLEAR); UR COLOR YELLOW (YELLOW); UR GLUCOSE (Dip) NEGATIVE (NEGATIVE); UR KETONES (Dip) NEGATIVE (NEGATIVE); UR LEUKOCYTE ESTERASE (Dip) 2+ Leu/ul (NEGATIVE); UR NITRITE (Dip) POSITIVE (NEGATIVE); UR RBC 3 /HPF (0-5); UR SPECIFIC GRAVITY (Dip) 1.009 (1.003-1.030); UR TOTAL PROTEIN (Dip) 1+ mg/dl (NEGATIVE); UR UROBILINOGEN (Dip) NEGATIVE (NEGATIVE); UR WBC 58 /HPF (0-5)
[2018-03-28 22:32] LABS: ANISOCYTOSIS 1+ (0-0); BAND NEUTROPHILS #M 0.1 10^3/ul (0.0-0.6); BAND NEUTROPHILS % (M) 1 % (0-4); LYMPHOCYTES #M 0.8 10^3/ul (0.8-2.9); LYMPHOCYTES % (M) 7 % (15-51); MONOCYTE #M 0.1 10^3/ul (0.3-0.9); MONOCYTES % (M) 1 % (0-11); PLATELET MORPHOLOGY COMMENT @See below; POIKILOCYTOSIS 1+ (0-0); SEG NEUT #M 10.6 10^3/ul (1.6-7.5); SEGMENTED NEUTROPHILS (M) % 91 % (39-77); SMUDGE%M 7 % (0-0)
[2018-03-28 23:29] LABS: LACTIC ACID 0.9 mmol/L (0.5-2.0)
[2018-03-28] MEDS: ONDANSETRON 4 MG INJ IV (23:56)
[2018-03-28] MEDS: SOD CHLORIDE 0.45% 1,000 ML IV (23:57)
[2018-03-29] MEDS: SOD CHLORIDE 0.45% 1,000 ML IV ×2 (01:12→14:47)
[2018-03-29] MEDS: LORAZEPAM 0.5 MG TAB PO ×2 (01:31→21:26)
[2018-03-29 01:54] LABS: LACTIC ACID 1.2 mmol/L (0.5-2.0)
[2018-03-29 05:41] LABS: WHITE BLOOD COUNT 9.5 10^3/ul (4.8-10.8)
[2018-03-29 05:41] LABS: HEMATOCRIT 26.8 % (37.0-47.0); HEMOGLOBIN 8.5 g/dl (12.0-16.0); MEAN CORPUSCULAR HEMOGLOBIN 31.8 pg (29.0-33.0); MEAN CORPUSCULAR HGB CONC 31.7 g/dl (32.0-37.0); MEAN CORPUSCULAR VOLUME 100.4 fl (82.0-101.0); MEAN PLATELET VOLUME 10.2 fl (7.4-10.4); PLATELET COUNT 199 10^3/UL (140-415); RED BLOOD COUNT 2.67 10^6/ul (4.20-5.40)
[2018-03-29 05:55] LABS: ADD MAN DIFF? YES; POSITIVE DIFF @See below
[2018-03-29 06:08] LABS: ALANINE AMINOTRANSFERASE 33 IU/L (13-69); ALBUMIN 2.5 g/dl (3.3-4.9); ALBUMIN/GLOBULIN RATIO 0.89; ALKALINE PHOSPHATASE 104 IU/L (42-121); ANION GAP 12 (8-16); ASPARTATE AMINO TRANSFERASE 24 IU/L (15-46); BILIRUBIN,INDIRECT 0.7 mg/dl (0-1.1); BILIRUBIN,TOTAL 0.7 mg/dl (0.2-1.3); BLOOD UREA NITROGEN 23 mg/dl (7-20); CALCIUM 6.7 mg/dl (8.4-10.2); CARBON DIOXIDE 18 mmol/L (21-31); CHLORIDE 115 mmol/L (97-110); CREATININE 1.26 mg/dl (0.44-1.00); GLUCOSE 88 mg/dl (70-220); POTASSIUM 3.9 mmol/L (3.5-5.1); SODIUM 141 mmol/L (135-144); TOTAL PROTEIN 5.3 g/dl (6.1-8.1)
[2018-03-29 09:07] LABS: ANISOCYTOSIS 1+ (0-0); BAND NEUTROPHILS #M 0.7 10^3/ul (0.0-0.6); BAND NEUTROPHILS % (M) 8 % (0-4); BASOPHILS % (M) 1 % (0-2); BURR CELLS 2+ (0-0); LYMPHOCYTES #M 0.8 10^3/ul (0.8-2.9); LYMPHOCYTES % (M) 9 % (15-51); MONOCYTES % (M) 1 % (0-11); PLATELET ESTIMATE NORMAL; POIKILOCYTOSIS 2+ (0-0); SEG NEUT #M 7.8 10^3/ul (1.6-7.5); SEGMENTED NEUTROPHILS (M) % 81 % (39-77); SMUDGE%M 5 % (0-0)
[2018-03-29] MEDS: CEFEPIME 1GM/50 ML (PMX) 50 ML IVPB ×2 (09:34→20:47)
[2018-03-29] MEDS: ATENOLOL 50 MG TAB PO (09:41)
[2018-03-29] MEDS: MELOXICAM 7.5 MG TAB PO (09:42)
[2018-03-29] MEDS: DONEPEZIL 5 MG TAB PO (09:42)
[2018-03-29] MEDS: AMLODIPINE 2.5 MG TAB PO (09:42)
[2018-03-29] MEDS: ENOXAPARIN 30 MG/0.3 ML SYG SC (09:45)
[2018-03-29] MEDS: ALBUTEROL 0.083% (NEB) 2.5 MG/3 ML AMP HHN (16:01)
[2018-03-29] MEDS: ATORVASTATIN 20 MG TAB PO (20:47)
[2018-03-30] MEDS: SOD CHLORIDE 0.45% 1,000 ML IV ×2 (03:13→17:45)
[2018-03-30] MEDS: ATENOLOL 50 MG TAB PO (08:30)
[2018-03-30] MEDS: CEFEPIME 1GM/50 ML (PMX) 50 ML IVPB ×2 (08:31→20:14)
[2018-03-30] MEDS: DONEPEZIL 5 MG TAB PO (08:31)
[2018-03-30] MEDS: MELOXICAM 7.5 MG TAB PO (08:31)
[2018-03-30] MEDS: AMLODIPINE 2.5 MG TAB PO (08:31)
[2018-03-30] MEDS: ENOXAPARIN 30 MG/0.3 ML SYG SC (08:36)
[2018-03-30] MEDS: MECLIZINE 12.5 MG TAB PO ×2 (17:45→21:43)
[2018-03-30 19:11] LABS: ADD MAN DIFF? NO
[2018-03-30 19:12] LABS: BASOPHILS % 0.3 % (0.0-2.0); EOSINOPHILS # 0.1 10^3/ul (0.0-0.5); EOSINOPHILS % 2.1 % (0.0-7.0); HEMATOCRIT 30.4 % (37.0-47.0); HEMOGLOBIN 9.8 g/dl (12.0-16.0); LYMPHOCYTES # 0.9 10^3/ul (0.8-2.9); LYMPHOCYTES % 12.8 % (15.0-51.0); MEAN CORPUSCULAR HEMOGLOBIN 31.5 pg (29.0-33.0); MEAN CORPUSCULAR HGB CONC 32.2 g/dl (32.0-37.0); MEAN CORPUSCULAR VOLUME 97.7 fl (82.0-101.0); MEAN PLATELET VOLUME 10.7 fl (7.4-10.4); MONOCYTE # 0.9 10^3/ul (0.3-0.9); MONOCYTES % 12.6 % (0.0-11.0); NEUTROPHIL # 4.9 10^3/ul (1.6-7.5); NEUTROPHILS % 71.8 % (39.0-77.0); PLATELET COUNT 249 10^3/UL (140-415); RED BLOOD COUNT 3.11 10^6/ul (4.20-5.40); RED CELL DISTRIBUTION WIDTH 16.5 % (11.5-14.5)
[2018-03-30 19:12] LABS: WHITE BLOOD COUNT 6.8 10^3/ul (4.8-10.8)
[2018-03-30 19:33] LABS: ANION GAP 14 (8-16); BLOOD UREA NITROGEN 17 mg/dl (7-20); CALCIUM 6.9 mg/dl (8.4-10.2); CARBON DIOXIDE 19 mmol/L (21-31); CHLORIDE 110 mmol/L (97-110); CREATININE 1.17 mg/dl (0.44-1.00); GLUCOSE 112 mg/dl (70-220); POTASSIUM 3.7 mmol/L (3.5-5.1); SODIUM 139 mmol/L (135-144)
[2018-03-30] MEDS: NYSTATIN 15 GM OINT TOP (20:14)
[2018-03-30] MEDS: ATORVASTATIN 20 MG TAB PO (20:14)
[2018-03-30] MEDS ORDERED: NYSTATIN 30 GM POWDER BTL TOP (21:00)
[2018-03-30] MEDS: LORAZEPAM 0.5 MG TAB PO (21:43)
[2018-03-30] MEDS: ALBUTEROL 0.083% (NEB) 2.5 MG/3 ML AMP HHN (21:49)
[2018-03-31 06:05] LABS: WHITE BLOOD COUNT 5.6 10^3/ul (4.8-10.8)
[2018-03-31 06:05] LABS: ADD MAN DIFF? NO; BASOPHILS % 0.4 % (0.0-2.0); EOSINOPHILS # 0.2 10^3/ul (0.0-0.5); EOSINOPHILS % 2.8 % (0.0-7.0); HEMATOCRIT 27.1 % (37.0-47.0); HEMOGLOBIN 8.7 g/dl (12.0-16.0); LYMPHOCYTES # 0.9 10^3/ul (0.8-2.9); LYMPHOCYTES % 16.3 % (15.0-51.0); MEAN CORPUSCULAR HGB CONC 32.1 g/dl (32.0-37.0); MEAN CORPUSCULAR VOLUME 96.4 fl (82.0-101.0); MEAN PLATELET VOLUME 10.6 fl (7.4-10.4); MONOCYTE # 0.9 10^3/ul (0.3-0.9); MONOCYTES % 15.6 % (0.0-11.0); NEUTROPHIL # 3.7 10^3/ul (1.6-7.5); NEUTROPHILS % 64.7 % (39.0-77.0); PLATELET COUNT 237 10^3/UL (140-415); RED BLOOD COUNT 2.81 10^6/ul (4.20-5.40); RED CELL DISTRIBUTION WIDTH 16.3 % (11.5-14.5)
[2018-03-31] MEDS: SOD CHLORIDE 0.45% 1,000 ML IV ×3 (06:45→20:40)
[2018-03-31 06:53] LABS: ANION GAP 10 (8-16); BLOOD UREA NITROGEN 14 mg/dl (7-20); CALCIUM 6.8 mg/dl (8.4-10.2); CARBON DIOXIDE 22 mmol/L (21-31); CHLORIDE 113 mmol/L (97-110); CREATININE 1.13 mg/dl (0.44-1.00); GLUCOSE 93 mg/dl (70-220); POTASSIUM 3.4 mmol/L (3.5-5.1); SODIUM 142 mmol/L (135-144)
[2018-03-31] MEDS: MELOXICAM 7.5 MG TAB PO (08:34)
[2018-03-31] MEDS: AMLODIPINE 2.5 MG TAB PO (08:34)
[2018-03-31] MEDS: POTASSIUM CHLORIDE (SR) 20 MEQ TAB PO (08:34)
[2018-03-31] MEDS: ATENOLOL 50 MG TAB PO (08:35)
[2018-03-31] MEDS: MECLIZINE 12.5 MG TAB PO ×3 (08:35→20:37)
[2018-03-31] MEDS: CEFEPIME 1GM/50 ML (PMX) 50 ML IVPB ×2 (08:35→20:37)
[2018-03-31] MEDS: DONEPEZIL 5 MG TAB PO (08:35)
[2018-03-31] MEDS: ENOXAPARIN 30 MG/0.3 ML SYG SC (08:37)
[2018-03-31] MEDS: NYSTATIN 15 GM OINT TOP ×2 (08:37→20:38)
[2018-03-31] MEDS: ACETAMINOPHEN 500 MG TAB PO (17:12)
[2018-03-31 17:46] LABS: PROLACTIN 28.7 ng/mL
[2018-03-31] MEDS: ATORVASTATIN 20 MG TAB PO (20:37)
[2018-03-31] MEDS: CEFTRIAXONE 2 GM/50 ML (PMX) 50 ML IVPB (22:45)
[2018-03-31] MEDS: LORAZEPAM 0.5 MG TAB PO (22:48)
[2018-04-01 05:49] LABS: ADD MAN DIFF? NO
[2018-04-01 05:53] LABS: BASOPHILS % 0.2 % (0.0-2.0); EOSINOPHILS # 0.2 10^3/ul (0.0-0.5); EOSINOPHILS % 3.8 % (0.0-7.0); HEMATOCRIT 30.3 % (37.0-47.0); HEMOGLOBIN 9.8 g/dl (12.0-16.0); LYMPHOCYTES # 1.1 10^3/ul (0.8-2.9); LYMPHOCYTES % 17.9 % (15.0-51.0); MEAN CORPUSCULAR HEMOGLOBIN 30.7 pg (29.0-33.0); MEAN CORPUSCULAR HGB CONC 32.3 g/dl (32.0-37.0); NEUTROPHIL # 3.9 10^3/ul (1.6-7.5); PLATELET COUNT 296 10^3/UL (140-415); RED BLOOD COUNT 3.19 10^6/ul (4.20-5.40); RED CELL DISTRIBUTION WIDTH 16.3 % (11.5-14.5)
[2018-04-01 05:53] LABS: WHITE BLOOD COUNT 6.3 10^3/ul (4.8-10.8)
[2018-04-01 06:25] LABS: ANION GAP 13 (8-16); BLOOD UREA NITROGEN 12 mg/dl (7-20); CALCIUM 7.2 mg/dl (8.4-10.2); CARBON DIOXIDE 22 mmol/L (21-31); CHLORIDE 111 mmol/L (97-110); CREATININE 1.03 mg/dl (0.44-1.00); GLUCOSE 88 mg/dl (70-220); POTASSIUM 3.4 mmol/L (3.5-5.1); SODIUM 143 mmol/L (135-144)
[2018-04-01 06:26] LABS: MONOCYTES % 15.5 % (0.0-11.0)
[2018-04-01] MEDS: MELOXICAM 7.5 MG TAB PO (08:54)
[2018-04-01] MEDS: DONEPEZIL 5 MG TAB PO (08:55)
[2018-04-01] MEDS: AMLODIPINE 2.5 MG TAB PO (08:58)
[2018-04-01] MEDS: ATENOLOL 50 MG TAB PO (08:58)
[2018-04-01] MEDS: MECLIZINE 12.5 MG TAB PO ×3 (09:00→20:48)
[2018-04-01] MEDS: ENOXAPARIN 30 MG/0.3 ML SYG SC (09:02)
[2018-04-01] MEDS: NYSTATIN 15 GM OINT TOP ×2 (09:04→20:48)
[2018-04-01] MEDS: SOD CHLORIDE 0.45% 1,000 ML IV ×2 (11:15→19:57)
[2018-04-01] MEDS: POTASSIUM CHLORIDE 100 ML IVPB (13:38)
[2018-04-01] MEDS: POTASSIUM CHLORIDE (SR) 20 MEQ TAB PO (16:42)
[2018-04-01] MEDS: ATORVASTATIN 20 MG TAB PO (20:47)
[2018-04-01] MEDS: CEFTRIAXONE 2 GM/50 ML (PMX) 50 ML IVPB (22:13)
[2018-04-01] MEDS: LORAZEPAM 0.5 MG TAB PO (22:18)
[2018-04-02] MEDS: SOD CHLORIDE 0.45% 1,000 ML IV ×2 (00:59→15:05)
[2018-04-02 06:38] LABS: HEMATOCRIT 33.2 % (37.0-47.0); HEMOGLOBIN 10.7 g/dl (12.0-16.0); MEAN CORPUSCULAR HEMOGLOBIN 31.2 pg (29.0-33.0); MEAN CORPUSCULAR HGB CONC 32.2 g/dl (32.0-37.0); MEAN CORPUSCULAR VOLUME 96.8 fl (82.0-101.0); PLATELET COUNT 352 10^3/UL (140-415); RED BLOOD COUNT 3.43 10^6/ul (4.20-5.40); RED CELL DISTRIBUTION WIDTH 16.2 % (11.5-14.5)
[2018-04-02 06:38] LABS: WHITE BLOOD COUNT 5.7 10^3/ul (4.8-10.8)
[2018-04-02 07:02] LABS: ANION GAP 12 (8-16); BLOOD UREA NITROGEN 11 mg/dl (7-20); CALCIUM 7.3 mg/dl (8.4-10.2); CARBON DIOXIDE 27 mmol/L (21-31); CHLORIDE 108 mmol/L (97-110); CREATININE 0.98 mg/dl (0.44-1.00); GLUCOSE 89 mg/dl (70-220); POTASSIUM 3.9 mmol/L (3.5-5.1); SODIUM 143 mmol/L (135-144)
[2018-04-02 07:08] LABS: ADD MAN DIFF? YES; POSITIVE DIFF @See below
[2018-04-02 08:27] LABS: BAND NEUTROPHILS % (M) 1 % (0-4); BASOPHILS % (M) 1 % (0-2); EOSINOPHILS % (M) 4 % (0-7); LYMPHOCYTES #M 1.6 10^3/ul (0.8-2.9); LYMPHOCYTES % (M) 29 % (15-51); MONOCYTE #M 0.6 10^3/ul (0.3-0.9); MONOCYTES % (M) 12 % (0-11); PLATELET ESTIMATE NORMAL; POLYCHROMASIA 3+ (0-0); REACTIVE LYMPHOCYTES #M 0.2 10^3/ul (0.0-0.0); REACTIVE LYMPHOCYTES% (M) 4 % (0-0); SEG NEUT #M 2.9 10^3/ul (1.6-7.5); SEGMENTED NEUTROPHILS (M) % 50 % (39-77); SMUDGE%M 18 % (0-0)
[2018-04-02] MEDS: MELOXICAM 7.5 MG TAB PO (09:16)
[2018-04-02] MEDS: DONEPEZIL 5 MG TAB PO (09:16)
[2018-04-02] MEDS: AMLODIPINE 2.5 MG TAB PO (09:17)
[2018-04-02] MEDS: ATENOLOL 50 MG TAB PO (09:17)
[2018-04-02] MEDS: NYSTATIN 15 GM OINT TOP ×2 (09:20→20:45)
[2018-04-02] MEDS: ENOXAPARIN 30 MG/0.3 ML SYG SC (09:22)
[2018-04-02] MEDS: MECLIZINE 12.5 MG TAB PO ×3 (09:22→20:42)
[2018-04-02] MEDS: LORAZEPAM 0.5 MG TAB PO (20:42)
[2018-04-02] MEDS: ATORVASTATIN 20 MG TAB PO (20:42)
[2018-04-02] MEDS: CEFTRIAXONE 2 GM/50 ML (PMX) 50 ML IVPB (22:08)
[2018-04-02] MEDS: ACETAMINOPHEN 500 MG TAB PO (22:20)
[2018-04-03] MEDS ORDERED: PANTOPRAZOLE 40 MG INJ IV ×3 (00:10→06:00)
[2018-04-03] MEDS: ONDANSETRON 4 MG INJ IV (00:40)
[2018-04-03] MEDS: morphine 2 MG INJ IV (00:41)
[2018-04-03] MEDS: PANTOPRAZOLE 40 MG INJ IV (00:41)
[2018-04-03] MEDS: SOD CHLORIDE 0.45% 1,000 ML IV ×3 (05:05→18:28)
[2018-04-03 08:34] LABS: WHITE BLOOD COUNT 6.6 10^3/ul (4.8-10.8)
[2018-04-03 08:34] LABS: HEMATOCRIT 31.3 % (37.0-47.0); HEMOGLOBIN 9.9 g/dl (12.0-16.0); MEAN CORPUSCULAR HEMOGLOBIN 30.5 pg (29.0-33.0); MEAN CORPUSCULAR HGB CONC 31.6 g/dl (32.0-37.0); MEAN CORPUSCULAR VOLUME 96.3 fl (82.0-101.0); PLATELET COUNT 370 10^3/UL (140-415); RED BLOOD COUNT 3.25 10^6/ul (4.20-5.40); RED CELL DISTRIBUTION WIDTH 16.2 % (11.5-14.5)
[2018-04-03 08:43] LABS: ADD MAN DIFF? YES; POSITIVE DIFF @See below
[2018-04-03 08:47] LABS: ALANINE AMINOTRANSFERASE 39 IU/L (13-69); ALBUMIN 2.7 g/dl (3.3-4.9); ALKALINE PHOSPHATASE 106 IU/L (42-121); AMYLASE 105 U/L (11-123); ANION GAP 9 (8-16); ASPARTATE AMINO TRANSFERASE 29 IU/L (15-46); BILIRUBIN,INDIRECT 0.1 mg/dl (0-1.1); BILIRUBIN,TOTAL 0.1 mg/dl (0.2-1.3); BLOOD UREA NITROGEN 10 mg/dl (7-20); CALCIUM 7.2 mg/dl (8.4-10.2); CARBON DIOXIDE 28 mmol/L (21-31); CHLORIDE 108 mmol/L (97-110); CREATININE 0.93 mg/dl (0.44-1.00); GLUCOSE 94 mg/dl (70-220); LIPASE 279 U/L (23-300); POTASSIUM 3.6 mmol/L (3.5-5.1); SODIUM 141 mmol/L (135-144); TOTAL PROTEIN 5.7 g/dl (6.1-8.1)
[2018-04-03] MEDS: DONEPEZIL 5 MG TAB PO (08:59)
[2018-04-03] MEDS: MECLIZINE 12.5 MG TAB PO ×2 (08:59→12:58)
[2018-04-03] MEDS: AMLODIPINE 2.5 MG TAB PO (08:59)
[2018-04-03] MEDS: MELOXICAM 7.5 MG TAB PO (09:00)
[2018-04-03] MEDS: ATENOLOL 50 MG TAB PO (09:00)
[2018-04-03] MEDS: NYSTATIN 15 GM OINT TOP ×2 (09:02→20:56)
[2018-04-03] MEDS: ENOXAPARIN 30 MG/0.3 ML SYG SC (09:02)
[2018-04-03 09:30] LABS: BAND NEUTROPHILS #M 0.2 10^3/ul (0.0-0.6); BAND NEUTROPHILS % (M) 4 % (0-4); BURR CELLS 1+ (0-0); EOSINOPHILS % (M) 3 % (0-7); GIANT THROMBO% (M) 1 % (0-0); HYPOCHROMASIA 1+ (0-0); LYMPHOCYTES #M 1.5 10^3/ul (0.8-2.9); LYMPHOCYTES % (M) 23 % (15-51); METAMYELOCYTES %M 1 % (0-0); MONOCYTE #M 0.5 10^3/ul (0.3-0.9); MONOCYTES % (M) 9 % (0-11); PLATELET ESTIMATE NORMAL; POLYCHROMASIA 1+ (0-0); REACTIVE LYMPHOCYTES% (M) 1 % (0-0); SEG NEUT #M 3.9 10^3/ul (1.6-7.5); SEGMENTED NEUTROPHILS (M) % 59 % (39-77); SMUDGE%M 8 % (0-0)
[2018-04-03] MEDS: LORAZEPAM 0.5 MG TAB PO (20:56)
[2018-04-03] MEDS: ATORVASTATIN 20 MG TAB PO (20:56)
[2018-04-03] MEDS: CEFTRIAXONE 2 GM/50 ML (PMX) 50 ML IVPB (21:18)
[2018-04-04] MEDS: PANTOPRAZOLE 40 MG INJ IV (05:55)
[2018-04-04] MEDS: SOD CHLORIDE 0.45% 1,000 ML IV (07:47)
[2018-04-04] MEDS: AMLODIPINE 2.5 MG TAB PO (08:10)
[2018-04-04] MEDS: MELOXICAM 7.5 MG TAB PO (08:10)
[2018-04-04] MEDS: ATENOLOL 50 MG TAB PO (08:10)
[2018-04-04] MEDS: DONEPEZIL 5 MG TAB PO (08:11)
[2018-04-04] MEDS: NYSTATIN 15 GM OINT TOP ×2 (08:11→20:03)
[2018-04-04] MEDS: ENOXAPARIN 30 MG/0.3 ML SYG SC (08:20)
[2018-04-04] MEDS: LEVOFLOXACIN 500MG/D5W (PMX) 100 ML IVPB (19:00)
[2018-04-04] MEDS: ATORVASTATIN 20 MG TAB PO (20:03)
[2018-04-04] MEDS: LORAZEPAM 0.5 MG TAB PO (20:29)
[2018-04-05] MEDS: PANTOPRAZOLE 40 MG INJ IV (06:13)
[2018-04-05 06:17] LABS: ADD MAN DIFF? NO
[2018-04-05 06:22] LABS: BASOPHILS % 0.2 % (0.0-2.0); EOSINOPHILS # 0.2 10^3/ul (0.0-0.5); EOSINOPHILS % 3.2 % (0.0-7.0); HEMATOCRIT 30.6 % (37.0-47.0); HEMOGLOBIN 9.9 g/dl (12.0-16.0); LYMPHOCYTES # 1.6 10^3/ul (0.8-2.9); LYMPHOCYTES % 24.3 % (15.0-51.0); MEAN CORPUSCULAR HGB CONC 32.4 g/dl (32.0-37.0); MEAN CORPUSCULAR VOLUME 95.9 fl (82.0-101.0); MEAN PLATELET VOLUME 9.8 fl (7.4-10.4); MONOCYTE # 0.6 10^3/ul (0.3-0.9); MONOCYTES % 8.8 % (0.0-11.0); NEUTROPHIL # 4.2 10^3/ul (1.6-7.5); PLATELET COUNT 421 10^3/UL (140-415); RED BLOOD COUNT 3.19 10^6/ul (4.20-5.40)
[2018-04-05 06:22] LABS: WHITE BLOOD COUNT 6.6 10^3/ul (4.8-10.8)
[2018-04-05 06:50] LABS: ANION GAP 12 (8-16); BLOOD UREA NITROGEN 9 mg/dl (7-20); CALCIUM 7.6 mg/dl (8.4-10.2); CARBON DIOXIDE 26 mmol/L (21-31); CHLORIDE 110 mmol/L (97-110); GLUCOSE 97 mg/dl (70-220); POTASSIUM 3.5 mmol/L (3.5-5.1); SODIUM 144 mmol/L (135-144)
[2018-04-05] MEDS: MELOXICAM 7.5 MG TAB PO (10:03)
[2018-04-05] MEDS: DONEPEZIL 5 MG TAB PO (10:03)
[2018-04-05] MEDS: ATENOLOL 50 MG TAB PO (10:04)
[2018-04-05] MEDS: AMLODIPINE 2.5 MG TAB PO (10:05)
[2018-04-05] MEDS: NYSTATIN 15 GM OINT TOP ×2 (10:05→20:42)
[2018-04-05] MEDS: ENOXAPARIN 30 MG/0.3 ML SYG SC (10:06)
[2018-04-05] MEDS: LEVOFLOXACIN 250MG/D5W (PMX) 50 ML IVPB (11:08)
[2018-04-05] MEDS ORDERED: LEVOFLOXACIN 250MG/D5W (PMX) 50 ML IVPB (16:00)
[2018-04-05] MEDS: ATORVASTATIN 20 MG TAB PO (20:41)
[2018-04-05] MEDS: LORAZEPAM 0.5 MG TAB PO (21:27)
[2018-04-06 05:48] LABS: ADD MAN DIFF? NO
[2018-04-06 05:49] LABS: WHITE BLOOD COUNT 7.3 10^3/ul (4.8-10.8)
[2018-04-06 05:49] LABS: BASOPHILS % 0.3 % (0.0-2.0); EOSINOPHILS # 0.2 10^3/ul (0.0-0.5); EOSINOPHILS % 2.6 % (0.0-7.0); HEMATOCRIT 31.1 % (37.0-47.0); HEMOGLOBIN 9.8 g/dl (12.0-16.0); LYMPHOCYTES # 1.7 10^3/ul (0.8-2.9); LYMPHOCYTES % 22.9 % (15.0-51.0); MEAN CORPUSCULAR HEMOGLOBIN 30.6 pg (29.0-33.0); MEAN CORPUSCULAR HGB CONC 31.5 g/dl (32.0-37.0); MEAN CORPUSCULAR VOLUME 97.2 fl (82.0-101.0); MEAN PLATELET VOLUME 9.8 fl (7.4-10.4); MONOCYTE # 0.6 10^3/ul (0.3-0.9); MONOCYTES % 8.2 % (0.0-11.0); NEUTROPHIL # 4.8 10^3/ul (1.6-7.5); NEUTROPHILS % 65.6 % (39.0-77.0); PLATELET COUNT 455 10^3/UL (140-415); RED CELL DISTRIBUTION WIDTH 16.2 % (11.5-14.5)
[2018-04-06] MEDS: PANTOPRAZOLE 40 MG INJ IV (05:58)
[2018-04-06 06:05] LABS: ANION GAP 11 (8-16); BLOOD UREA NITROGEN 11 mg/dl (7-20); CALCIUM 8.1 mg/dl (8.4-10.2); CARBON DIOXIDE 29 mmol/L (21-31); CHLORIDE 109 mmol/L (97-110); CREATININE 0.94 mg/dl (0.44-1.00); GLUCOSE 96 mg/dl (70-220); POTASSIUM 3.7 mmol/L (3.5-5.1); SODIUM 145 mmol/L (135-144)
[2018-04-06] MEDS: ATENOLOL 50 MG TAB PO (09:25)
[2018-04-06] MEDS: AMLODIPINE 2.5 MG TAB PO (09:25)
[2018-04-06] MEDS: MELOXICAM 7.5 MG TAB PO (09:25)
[2018-04-06] MEDS: DONEPEZIL 5 MG TAB PO (09:25)
[2018-04-06] MEDS: ENOXAPARIN 30 MG/0.3 ML SYG SC (09:30)
[2018-04-06] MEDS: LEVOFLOXACIN 250 MG TAB PO (10:44)
[2018-04-06] MEDS: NYSTATIN 15 GM OINT TOP (10:46)
== END 2018-04-06 14:30 | disposition home health service (06) | DRG 872 ==
LOC: E/R 18:58 → MS2 23:02
DX: A41.9 Sepsis, unspecified organism (principal); N39.0 Urinary tract infection, site not specified; N17.9 Acute kidney failure, unspecified; J90 Pleural effusion, not elsewhere classified; I12.9 Hypertensive chronic kidney disease with stage 1 through stage 4 chronic kidney disease, or unspecified chronic kidney disease; E78.5 Hyperlipidemia, unspecified; Z96.641 Presence of right artificial hip joint; R65.20 Severe sepsis without septic shock; N18.2 Chronic kidney disease, stage 2 (mild); M19.90 Unspecified osteoarthritis, unspecified site; D64.9 Anemia, unspecified; S72.391D Other fracture of shaft of right femur, subsequent encounter for closed fracture with routine healing; X58.XXXD Exposure to other specified factors, subsequent encounter
CPT/HCPCS: 71045; 73550; 80048; 80053; 81001; 82150; 83605; 83690; 84146; 84484; 85025; 85610; 85730; 87040; 87081; 87086; 92610; 93005; 94640; 94664; 96374; 96375; 97110; 97116; 97162; 97530; 99291-25

== ENCOUNTER 2018-07-05 09:01 | Emergency (ER) | payer MEDICARE, OTHER ==
[2018-07-05 09:46] LABS: ADD MAN DIFF? NO
[2018-07-05 09:48] LABS: BASOPHILS % 0.2 % (0.0-2.0); HEMATOCRIT 39.8 % (37.0-47.0); HEMOGLOBIN 12.8 g/dl (12.0-16.0); LYMPHOCYTES # 1.1 10^3/ul (0.8-2.9); LYMPHOCYTES % 18.5 % (15.0-51.0); MEAN CORPUSCULAR HEMOGLOBIN 29.8 pg (29.0-33.0); MEAN CORPUSCULAR HGB CONC 32.2 g/dl (32.0-37.0); MEAN CORPUSCULAR VOLUME 92.6 fl (82.0-101.0); MEAN PLATELET VOLUME 10.5 fl (7.4-10.4); MONOCYTE # 0.3 10^3/ul (0.3-0.9); MONOCYTES % 4.9 % (0.0-11.0); NEUTROPHIL # 4.6 10^3/ul (1.6-7.5); NEUTROPHILS % 75.9 % (39.0-77.0); PLATELET COUNT 227 10^3/UL (140-415); RED CELL DISTRIBUTION WIDTH 13.6 % (11.5-14.5)
[2018-07-05 09:48] LABS: WHITE BLOOD COUNT 6.1 10^3/ul (4.8-10.8)
[2018-07-05] MEDS: ONDANSETRON 4 MG INJ IV (09:48)
[2018-07-05 10:10] LABS: ALANINE AMINOTRANSFERASE 17 IU/L (13-69); ALBUMIN 4.3 g/dl (3.3-4.9); ALBUMIN/GLOBULIN RATIO 1.26; ALKALINE PHOSPHATASE 50 IU/L (42-121); ANION GAP 18 (8-16); ASPARTATE AMINO TRANSFERASE 24 IU/L (15-46); BILIRUBIN,INDIRECT 0.2 mg/dl (0-1.1); BILIRUBIN,TOTAL 0.2 mg/dl (0.2-1.3); BLOOD UREA NITROGEN 20 mg/dl (7-20); CARBON DIOXIDE 25 mmol/L (21-31); CHLORIDE 104 mmol/L (97-110); CREATININE 1.08 mg/dl (0.44-1.00); GLUCOSE 146 mg/dl (70-220); LIPASE 186 U/L (23-300); POTASSIUM 4.1 mmol/L (3.5-5.1); SODIUM 143 mmol/L (135-144); TOTAL PROTEIN 7.7 g/dl (6.1-8.1)
[2018-07-05 10:22] LABS: TROPONIN-I 0.012 ng/ml (0.000-0.120)
[2018-07-05 10:33] LABS: ADD UMIC YES; UR ASCORBIC ACID NEGATIVE (NEGATIVE); UR BACTERIA FEW /HPF (NONE SEEN); UR BILIRUBIN (Dip) NEGATIVE (NEGATIVE); UR BLOOD (Dip) NEGATIVE (NEGATIVE); UR CLARITY CLEAR (CLEAR); UR COLOR YELLOW (YELLOW); UR GLUCOSE (Dip) NEGATIVE (NEGATIVE); UR KETONES (Dip) TRACE mg/dL (NEGATIVE); UR LEUKOCYTE ESTERASE (Dip) TRACE Leu/ul (NEGATIVE); UR NITRITE (Dip) NEGATIVE (NEGATIVE); UR RBC 2 /HPF (0-5); UR SPECIFIC GRAVITY (Dip) 1.012 (1.003-1.030); UR TOTAL PROTEIN (Dip) NEGATIVE (NEGATIVE); UR UROBILINOGEN (Dip) NEGATIVE (NEGATIVE); UR WBC 3 /HPF (0-5)
[2018-07-05] MEDS: LACTATED RINGER'S 1,000 ML IV (10:33)
== END 2018-07-05 13:06 | disposition home or self-care (01) ==
LOC: E/R 09:01
DX: N30.00 Acute cystitis without hematuria (principal); E86.0 Dehydration; I10 Essential (primary) hypertension
CPT/HCPCS: 36415; 71045; 74176; 80053; 81001; 83690; 84484; 85025; 87086; 93005; 96374; 99285-25